=== PATIENT | female | born 1995 | race Caucasian/White ===

== ENCOUNTER 2019-02-20 18:39 | Emergency (ER) | payer SELFPAY ==
[~2019-02-20] VITALS: Ht 162.6 cm; Wt 93.0 kg
[2019-02-20] MEDS ORDERED: ALBUTEROL SULF 0.083% NEB SOLN 3 ML NEB NEB STA (18:51)
[2019-02-20] MEDS ORDERED: IPRATROPIUM BROMIDE 0.02% 2.5 ML NEB NEB STA (18:51)
[2019-02-20] MEDS ORDERED: SODIUM CHLORIDE 0.9% 1000ML 1,000 ML IV STA (18:51)
[2019-02-20] MEDS ORDERED: METHYLPREDNISOLONE SOD SUCC 125 MG/2ML VIAL IV ONE (19:00)
== END 2019-02-20 19:25 | disposition home or self-care (01) ==
LOC: FSED 18:39
DX: J45.41 Moderate persistent asthma with (acute) exacerbation (principal)
CPT/HCPCS: 99283; J2930; J7030

== ENCOUNTER 2019-02-22 00:51 | Emergency (ER) | payer SELFPAY ==
[~2019-02-22] VITALS: Ht 162.6 cm; Wt 93.0 kg
[2019-02-22] MEDS ORDERED: DIPHENHYDRAMINE HCL 25 MG CAP PO ONE (02:45)
[2019-02-22] MEDS ORDERED: LEVALBUTEROL HCL SOLN NEBU 1.25 MG/3 ML NEB INH ONE (02:45)
--- NOTE | 2019-02-22 03:08 | Diagnostic Imaging Report ---
EXAMINATION: CXR 2 VIEW - HOPD INDICATION: Shortness of breath. COMPARISON: None FINDINGS: PA and lateral views TUBES and LINES: None. LUNGS: Lungs are well inflated. Lungs are clear. There is no evidence of pneumonia or pulmonary edema. PLEURA: No pleural effusion or pneumothorax. HEART AND MEDIASTINUM: The cardiomediastinal silhouette is unremarkable. BONES AND SOFT TISSUES: No acute osseous lesion. Soft tissues are unremarkable. UPPER ABDOMEN: No free air under the diaphragm. IMPRESSION: No acute thoracic abnormality. Signed by: DR. Heriberto Calvillo MD on 02/22/2019 3:05 AM
== END 2019-02-22 03:30 | disposition home or self-care (01) ==
LOC: FSED 00:51
DX: R06.00 Dyspnea, unspecified (principal); R05 Cough; J20.9 Acute bronchitis, unspecified
CPT/HCPCS: 71046; 99283